=== PATIENT | female | born 1985 | race American Indian/Alaskan Native ===

== ENCOUNTER 2016-12-04 15:27 | Emergency (ER) | payer OTHER ==
[2016-12-04] MEDS ORDERED: Albuterol-Ipratrop 3 mg / 0.5 (3 ml) UD IH STA (15:48)
--- NOTE | 2016-12-04 15:55 | ED PDOC ---
Arrival/HPI - General Time Seen by Provider: 12/04/16 15:31 Historian: Patient - History of Present Illness Narrative History of Present Illness (Text): 12/04/16 15:58 A 31 year old female presents to the emergency department complaining of 2 day duration shortness of breath. Patient denies cough, congestion, sore throat, sputum, fever, chest pain, palpitations or any other complaints at this time. Patient notes never had these symptoms in the past. Patient also notes occasional alcohol use but denies smoking or drug use. Time/Duration: Other (2 days) Symptom Onset: Sudden Symptom Course: Unchanged Activities at Onset: Rest Modifying Factors (Text): none Context: Home Associated Symptoms (Text): none 12/04/16 17:28 2 day history of dyspnea. No chest pain or palpitations. No cough congestion or URI. No nausea or vomiting. No allergies. No headache dizziness or lightheadedness. Patient appears comfortable and in no distress. No history of asthma. Past Medical History - Provider Review Nursing Documentation Reviewed: Yes - Infectious Disease Hx of Infectious Diseases: None - Psychiatric Hx Substance Use: No - Anesthesia Hx Anesthesia: No Family/Social History - Physician Review Nursing Documentation Reviewed: Yes Family/Social History: No Known Family HX Smoking Status: Never Smoked Hx Alcohol Use: No Hx Substance Use: No Allergies/Home Meds Allergies/Adverse Reactions: Allergies No Known Allergies Allergy (Verified 01/11/16 16:03) Review of Systems - Physician Review All systems were reviewed & negative as marked: Yes - Review of Systems Constitutional: absent: Fatigue, Fevers ENT: absent: Sore Throat, Sinus Congestion Respiratory: SOB. absent: Cough, Sputum, Wheezing Cardiovascular: absent: Chest Pain, Palpitations, Edema, Syncope Gastrointestinal: absent: Abdominal Pain, Nausea, Vomiting Genitourinary Female: absent: Dysuria, Frequency, Hematuria Neurological: absent: Headache, Dizziness, Focal Weakness Physical Exam Vital Signs Reviewed: Yes Vital Signs Temp Pulse Resp BP Pulse Ox 12/04/16 16:11 98.0 F 81 18 130/81 98 12/04/16 15:41 97.8 F 70 18 105/70 100 Temperature: Afebrile Blood Pressure: Normal Pulse: Regular Respiratory Rate: Normal Appearance: Positive for: Well-Appearing, Non-Toxic, Comfortable Pain Distress: None Mental Status: Positive for: Alert and Oriented X 3 - Systems Exam Head: Present: Atraumatic, Normocephalic Pupils: Present: PERRL Extroacular Muscles: Present: EOMI Conjunctiva: Present: Normal Ears: Present: NORMAL TM, Normal Canal. No: Erythema Mouth: Present: Moist Mucous Membranes Pharnyx: No: ERYTHEMA, EXUDATE, TONSILS ENLARGED Neck: Present: Normal Range of Motion Respiratory/Chest: Present: Clear to Auscultation, Good Air Exchange. No: Respiratory Distress, Accessory Muscle Use Cardiovascular: Present: Regular Rate and Rhythm, Normal S1, S2. No: Murmurs Abdomen: Present: Normal Bowel Sounds. No: Tenderness, Distention, Peritoneal Signs, Rebound, Guarding Back: Present: Normal Inspection Upper Extremity: Present: Normal Inspection. No: Cyanosis, Edema Lower Extremity: Present: Normal Inspection. No: Edema, CALF TENDERNESS Neurological: Present: GCS=15, CN II-XII Intact, Speech Normal, Motor Func Grossly Intact Skin: Present: Warm, Dry, Normal Color. No: Rashes Psychiatric: Present: Alert, Oriented x 3, Normal Insight, Normal Concentration Medical Decision Making ED Course and Treatment: 12/04/16 15:53 Impression: A 31 year old female with shortness of breath. Differential Diagnosis included but are not limited to: Plan: -- EKG -- chest xray -- labs -- Urinalysis -- Duoneb -- Reassess and disposition Prior Visits: Notes and results from previous visits were reviewed. Patient last reported to the emergency department on 01/11/16 for evaluation of wrist pain. Patient was discharged. Progress Notes: 12/04/16 17:30 EKG shows sinus arrhythmia with unifocal PVCs rate Approximately [address] or T-wave changes 12/04/16 17:38 Patient is feeling better after one high flow nebulizer treatment - Lab Interpretations Lab Results: 12/04/16 16:00 12/04/16 16:00 Lab Results 12/04/16 16:00: Sodium 136, Potassium 3.7, Chloride 103, Carbon Dioxide 25, Anion Gap 12, BUN 14, Creatinine 0.7, Est GFR ( Amer) > 60, Est GFR (Non- Af Amer) > 60, Random Glucose 79, Calcium 9.3, Total Bilirubin 0.5, AST 24, ALT 24, Alkaline Phosphatase 68, Lactate Dehydrogenase 448, Total Creatine Kinase 82 , Troponin I < 0.01, NT-Pro-B Natriuret Pep 39.0, Total Protein 8.0, Albumin 4.3 , Globulin 3.8, Albumin/Globulin Ratio 1.1 12/04/16 16:00: PT 11.5, INR 1.06, APTT 28.0, D-Dimer, Quantitative 0.32 12/04/16 16:00: WBC 6.4, RBC 4.55, Hgb 12.7, Hct 37.0, MCV 81.3, MCH 27.9, MCHC 34.3, RDW 13.6, Plt Count 182, MPV 10.5, Gran % 38.4 L, Lymph % (Auto) 49.6 H, [place] % (Auto) 9.5 H, Eos % (Auto) 2.0, Baso % (Auto) 0.5, Gran # 2.45, Lymph # 3.2, [place] # 0.6, Eos # 0.1, Baso # 0.03 I have reviewed the lab results: Yes - RAD Interpretation Radiology Orders: 12/04/16 15:47 CHEST TWO VIEWS (PA/LAT) [RAD] Stat Chest 2 views shows no infiltrate effusion cardiomegaly or pneumothorax Storeroom Supervisor: ED Physician - EKG Interpretation Interpreted by ED Physician: Yes Type: 12 lead EKG - Medication Orders Current Medication Orders: Discontinued Medications Albuterol/Ipratropium (Duoneb 3 Mg/0.5 Mg (3 Ml) Ud) 3 ml IH ONCE STA Stop: 12/04/16 15:49 Last Admin: 12/04/16 16:14 Dose: 3 ml - Scribe Statement The provider has reviewed the documentation as recorded by the Mik Prakash Provider Scribe Attestation: All medical record entries made by the Mik were at my direction and personally dictated by me. I have reviewed the chart and agree that the record accurately reflects my personal performance of the history, physical exam, medical decision making, and the department course for this patient. I have also personally directed, reviewed, and agree with the discharge instructions and disposition. Disposition/Present on Arrival - Present on Arrival Any Indicators Present on Arrival: No History of DVT/PE: No History of Uncontrolled Diabetes: No Urinary Catheter: No History Surgical Site Infection Following: None - Disposition Have Diagnosis and Disposition been Completed?: Yes Diagnosis: Dyspnea Disposition: HOME/ ROUTINE Disposition Time: 17:40 Patient Plan: Discharge Condition: IMPROVED Discharge Instructions (ExitCare): Dyspnea (ED) Prescriptions: Albuterol HFA [Ventolin HFA 90 mcg/actuation (8 g)] 2 puff IH [id number] #1 puff Referrals: PCP,JUAN [Primary Care Provider] - Follow up with primary Yolanda Booth MD [Staff Provider] - Follow up with primary
[2016-12-04 16:13] VITALS: BP 130/81; PULSE 81; TEMP 98; O2SAT 98; BMI 32.1
[2016-12-04 16:20] LABS: ADD MANUAL DIFF? NO
[2016-12-04 16:36] LABS: ALB/GLOB RATIO 1.1 (1.1-1.8); ALKALINE PHOSPHATASE 68 U/L (38-133); ALT/SGPT 24 U/L (7-56); AST/SGOT 24 U/L (15-39); BILIRUBIN,TOTAL 0.5 mg/dL (0.2-1.3); BLOOD UREA NITROGEN 14 mg/dL (7-21); CALCIUM 9.3 mg/dL (8.4-10.5); CARBON DIOXIDE 25 mmol/L (21-33); CHLORIDE 103 mmol/L (98-107); GFR AFRICAN-AMERICAN > 60; GLUCOSE,RANDOM 79 mg/dL (70-110); POTASSIUM 3.7 mmol/L (3.6-5.0); SODIUM 136 mmol/L (132-148)
[2016-12-04 16:40] LABS: BASO # 0.03 K/mm3 (0.0-2.0); BASO % 0.5 % (0.0-3.0); EOS # 0.1 (0.0-0.7); GRAN # 2.45 (1.4-6.5); GRAN % 38.4 % (50.0-68.0); LYMPH # 3.2 (1.2-3.4); LYMPH % 49.6 % (22.0-35.0); MEAN CELL VOLUME 81.3 fL (80.0-105.0); MEAN CORPUSCULAR HEMOGLOBIN 27.9 pg (25.0-35.0); MEAN CORPUSCULAR HGB CONC 34.3 g/dl (31.0-37.0); MEAN PLATELET VOLUME 10.5 fl (7.0-11.0); MONO # 0.6 (0.1-0.6); MONO % 9.5 % (1.0-6.0); PLATELET COUNT 182 10^3/uL (120.0-450.0); RED CELL DISTRIBUTION WIDTH 13.6 % (11.5-14.5); WHITE BLOOD COUNT 6.4 10^3/ul (4.5-11.0)
[2016-12-04 16:49] LABS: INR 1.06 (0.93-1.08)
[2016-12-04 16:50] LABS: D DIMER 0.32 mg/L FEU (0-0.50)
[2016-12-04 16:55] LABS: TROPONIN I < 0.01 ng/mL
[2016-12-04 18:10] VITALS: RESP 16
--- NOTE | 2016-12-05 01:51 | CARD ---
APPROVED REPORT EKG Measurement Heart [id number] <Conclusion> Sinus rhythm with frequent premature ventricular complexes Otherwise normal ECG
--- NOTE | 2016-12-05 08:58 | RAD ---
HISTORY: sob COMPARISON: No prior. TECHNIQUE: Chest PA and lateral FINDINGS: LUNGS: No active pulmonary disease. PLEURA: No significant pleural effusion identified. No pneumothorax apparent. CARDIOVASCULAR: Normal. OSSEOUS STRUCTURES: No significant abnormalities. VISUALIZED UPPER ABDOMEN: Normal. OTHER FINDINGS: None. IMPRESSION: No active disease.
== END 2016-12-04 18:42 | disposition home or self-care (01) ==
LOC: ED 15:27
DX: R06.00 Dyspnea, unspecified (principal)

== ENCOUNTER 2017-06-06 18:10 | Emergency (ER) | payer OTHER ==
[2017-06-06 18:22] VITALS: TEMP 98.2; BMI 32.8
--- NOTE | 2017-06-06 18:39 | ED PDOC ---
Arrival/HPI - General Chief Complaint: Chest Pain Time Seen by Provider: 06/06/17 18:19 Historian: Patient - History of Present Illness Narrative History of Present Illness (Text): 06/06/17 18:38 This 32 yo female who denies pmh, presents to this ED c/o RLL pleuritic chest pain x 3 weeks. Patient stated patient was seen at [facility] x 2 weeks ago for same complains. Patient stated she had CT scan of chest, blood test at [facility], which were negative. Patient denies fever, cough, sob, abdominal pain, urinary symptoms, skin rash, dizziness, ROCHA, leg swelling, calf pain, recent trauma, recent surgery, or abnormal gait. PERC negative for PE Time/Duration: Other (e hpi) Quality: Stabbing Context: Home Past Medical History - Provider Review Nursing Documentation Reviewed: Yes - Infectious Disease Hx of Infectious Diseases: None - Psychiatric Hx Substance Use: No - Surgical History Other/Comment: cyst removal of right ovary - Anesthesia Hx Anesthesia: Yes Hx Anesthesia Reactions: No Hx Malignant Hyperthermia: No Family/Social History - Physician Review Nursing Documentation Reviewed: Yes Family/Social History: Other (noncontributory) Smoking Status: Never Smoked Hx Alcohol Use: No Hx Substance Use: No Allergies/Home Meds Allergies/Adverse Reactions: Allergies No Known Allergies Allergy (Verified 01/11/16 16:03) Physical Exam Vital Signs Temp Pulse Resp BP Pulse Ox 06/06/17 18:21 98.2 F 67 18 126/71 98 Medical Decision Making ED Course and Treatment: 06/06/17 21:07 Re-evaluation. Patient feels better. Discussed results and plan with patient who expresses understanding. All questions answered and there is agreement with the plan to discharge home with instructions. Patient stable for discharge. Return if symptoms persist or worsen. Re-evaluation Time: 21:06 Reassessment Condition: Re-examined, Improved - Lab Interpretations Lab Results: 06/06/17 19:56 06/06/17 19:56 Lab Results 06/06/17 19:56: Sodium 140, Potassium 4.4, Chloride 105, Carbon Dioxide 27, Anion Gap 12, BUN 15, Creatinine 0.9, Est GFR ( Amer) > 60, Est GFR (Non- Af Amer) > 60, Random Glucose 92, Calcium 9.6, Total Bilirubin 0.6, AST 27, ALT 25, Alkaline Phosphatase 62, Total Protein 7.9, Albumin 4.2, Globulin 3.7, Albumin/Globulin Ratio 1.1, Lipase 74 06/06/17 19:56: WBC 5.5, RBC 4.61, Hgb 13.0, Hct 39.2, MCV 85.0, MCH 28.2, MCHC 33.2, RDW 13.3, Plt Count 194, MPV 10.0, Gran % 32.8 L, Lymph % (Auto) 55.2 H, [place] % (Auto) 9.1 H, Eos % (Auto) 2.7, Baso % (Auto) 0.2, Gran # 1.81, Lymph # 3.0, [place] # 0.5, Eos # 0.2, Baso # 0.01 06/06/17 19:10: Urine Color Yellow, Urine Appearance Sl cloudy, Urine pH 7.0, Ur Specific [place] 1.020, Urine Protein Trace H, Urine Glucose (UA) Negative, Urine Ketones Negative, Urine Blood Moderate H, Urine Nitrate Negative, Urine Bilirubin Negative, Urine Urobilinogen 0.2, Ur Leukocyte Esterase Trace H, Urine RBC 5 - 10, Urine WBC 5 - 10, Ur Epithelial Cells 10 - 12, Urine Bacteria Mod, Urine HCG, Qual Negative I have reviewed the lab results: Yes Interpretation: No clinic. lab abnormalty - RAD Interpretation Narrative RAD Interpretations (Text): 06/06/17 20:56 Chest x-rays: [facility] of Radiology [address] [place] [address] Tel. no. Patient Name: STAS CHIN Pt. Address: [address] [place] [address]. Rec #: [id number] [place] [address]: Tito BARRIOS,Keegan De La Torre Pt Order Location: ED : 1985 Female Age: 32 Order #: [id number] Reason for exam: RUQ pain Ultrasound ABDOMEN COMPLETE Exam Date: 06/06/17 This imaging exam was performed at [facility] EXAM: US Abdomen Complete EXAM DATE/TIME: 06/06/2017 6:39 PM CLINICAL HISTORY: 32 years old, female; Pain; Abdominal pain; Flank; Right upper quadrant (ruq); Additional info: Ruq pain TECHNIQUE: Real-time ultrasound of the abdomen (complete) with image documentation. COMPARISON: There are no prior studies for comparison. FINDINGS: Liver: Liver is unremarkable. There is hepatopedal flow in the main portal vein. Gallbladder: Gallbladder is only partially distended with no stones, sludge or wall thickening. Common bile duct: Common bile duct measures 8 mm in diameter. Pancreas: Pancreas is partially obscured by bowel gas. Visualized portion is unremarkable. Kidneys: There are no renal abnormalities. Right kidney measures approximately 11 cm in length. Bowel gas limits evaluation left renal length.There is no pelvocaliectasis. Spleen: Spleen is unremarkable. Aorta: Visualized portions of the aorta and inferior vena cava are unremarkable. Inferior vena cava: See above. IMPRESSION: Partially distended gallbladder, no shadowing stones or sludge; prominent common duct; slightly limited evaluation of the abdomen due to bowel gas and body habitus; no hydronephrosis Patient was not tender over the gallbladder Dictated By: Gifty Aragon MD, MD Dictated Date/Time: 06/06/172014 Signed By: Gifty Aragon MD Date Signed: 2014 Transcribed By: CHRISTINA Transcribe Date/Time : 06/06/172014 KIESHA/SAMUEL Radiology Orders: 06/06/17 18:39 ABDOMEN COMPLETE [US] Stat 06/06/17 18:40 CHEST TWO VIEWS (PA/LAT) [RAD] Stat - EKG Interpretation Interpreted by ED Physician: Yes (NSR @ 69 bpm. Normal interval) Type: 12 lead EKG Comparison: No previous EKG avail. - Medication Orders Current Medication Orders: Discontinued Medications Famotidine (Pepcid) 20 mg IVP STAT STA Stop: 06/06/17 18:40 Disposition/Present on Arrival - Present on Arrival Any Indicators Present on Arrival: No History of DVT/PE: No History of Uncontrolled Diabetes: No Urinary Catheter: No History of Decub. Ulcer: No History Surgical Site Infection Following: None - Disposition Have Diagnosis and Disposition been Completed?: Yes Diagnosis: Chest wall pain Disposition: HOME/ ROUTINE Disposition Time: 21:11 Patient Plan: Discharge Condition: GOOD Discharge Instructions (ExitCare): Chest Wall Pain (ED) Additional Instructions: Call private doctor for follow up visit in 1-2 days. Take medication as instructed with food. Return to emergency if symptoms worsen. Prescriptions: Ibuprofen [Motrin] 600 mg PO Q8 PRN #20 tab PRN Reason: Pain, Severe (8-10) Omeprazole 40 mg PO DAILY #20 capsule. Referrals: Yolanda Booth MD [Family Provider] - Follow up with primary Forms: [facility] (Pashto), WORK NOTE
[2017-06-06 19:26] LABS: URINE BILIRUBIN NEGATIVE (NEGATIVE); URINE BLOOD MODERATE (NEGATIVE); URINE GLUCOSE (UA) NEGATIVE (NEGATIVE); URINE KETONE NEGATIVE (NEGATIVE); URINE LEUKOCYTE ESTERASE TRACE Leu/uL (NEGATIVE); URINE PROTEIN TRACE mg/dL (<30 mg/dL); URINE UROBILINOGEN 0.2 E.U./dL (<1 E.U./dL)
[2017-06-06 19:29] LABS: URINE APPEARANCE SL CLOUDY (CLEAR); URINE COLOR YELLOW (YELLOW)
[2017-06-06 19:36] LABS: URINE BACTERIA MOD (NEG)
[2017-06-06 20:10] LABS: BASO # 0.01 K/mm3 (0.0-2.0); BASO % 0.2 % (0.0-3.0); EOS # 0.2 (0.0-0.7); EOS % 2.7 % (1.5-5.0); GRAN # 1.81 (1.4-6.5); GRAN % 32.8 % (50.0-68.0); HEMATOCRIT 39.2 % (36.0-48.0); LYMPH % 55.2 % (22.0-35.0); MEAN CORPUSCULAR HEMOGLOBIN 28.2 pg (25.0-35.0); MEAN CORPUSCULAR HGB CONC 33.2 g/dl (31.0-37.0); MONO # 0.5 (0.1-0.6); MONO % 9.1 % (1.0-6.0); RED CELL DISTRIBUTION WIDTH 13.3 % (11.5-14.5); WHITE BLOOD COUNT 5.5 10^3/ul (4.5-11.0)
[2017-06-06 20:22] LABS: ALB/GLOB RATIO 1.1 (1.1-1.8); ALKALINE PHOSPHATASE 62 U/L (38-126); ALT/SGPT 25 U/L (7-56); AST/SGOT 27 U/L (14-36); BILIRUBIN,TOTAL 0.6 mg/dL (0.2-1.3); BLOOD UREA NITROGEN 15 mg/dL (7-21); CALCIUM 9.6 mg/dL (8.4-10.5); CARBON DIOXIDE 27 mmol/L (21-33); CHLORIDE 105 mmol/L (98-107); GFR AFRICAN-AMERICAN > 60; GLUCOSE,RANDOM 92 mg/dL (70-110); LIPASE 74 U/L (23-300); POTASSIUM 4.4 mmol/L (3.6-5.0); SODIUM 140 mmol/L (132-148); TOTAL PROTEIN 7.9 g/dL (5.8-8.3)
--- NOTE | 2017-06-06 20:24 | US ---
EXAM: US Abdomen Complete EXAM DATE/TIME: 06/06/2017 6:39 PM CLINICAL HISTORY: 32 years old, female; Pain; Abdominal pain; Flank; Right upper quadrant (ruq); Additional info: Ruq pain TECHNIQUE: Real-time ultrasound of the abdomen (complete) with image documentation. COMPARISON: There are no prior studies for comparison. FINDINGS: Liver: Liver is unremarkable. There is hepatopedal flow in the main portal vein. Gallbladder: Gallbladder is only partially distended with no stones, sludge or wall thickening. Common bile duct: Common bile duct measures 8 mm in diameter. Pancreas: Pancreas is partially obscured by bowel gas. Visualized portion is unremarkable. Kidneys: There are no renal abnormalities. Right kidney measures approximately 11 cm in length. Bowel gas limits evaluation left renal length.There is no pelvocaliectasis. Spleen: Spleen is unremarkable. Aorta: Visualized portions of the aorta and inferior vena cava are unremarkable. Inferior vena cava: See above. IMPRESSION: Partially distended gallbladder, no shadowing stones or sludge; prominent common duct; slightly limited evaluation of the abdomen due to bowel gas and body habitus; no hydronephrosis Patient was not tender over the gallbladder
[2017-06-06 21:53] VITALS: BP 124/83; PULSE 72; RESP 16; O2SAT 100
--- NOTE | 2017-06-07 08:34 | RAD ---
HISTORY: COMPARISON: 12/04/2016. TECHNIQUE: Chest PA and lateral FINDINGS: LINES AND TUBES: None. LUNG AND PLEURA: The lungs are well inflated and clear. HEART AND MEDIASTINUM: The heart is not enlarged. The hilar and mediastinal contours are within normal limits. SKELETAL STRUCTURES: The bony structures are within normal limits for the patient's age. VISUALIZED UPPER ABDOMEN: Normal. OTHER FINDINGS: None. IMPRESSION: No active pulmonary disease.
--- NOTE | 2017-06-07 22:19 | CARD ---
APPROVED REPORT EKG Measurement Heart [id number] <Conclusion> Normal sinus rhythm Normal ECG
== END 2017-06-06 21:53 | disposition home or self-care (01) ==
LOC: ED 18:10
DX: R07.89 Other chest pain (principal)
CPT/HCPCS: 71020; 76700; 80053; 81001; 83690; 84703; 85025; 87086; 93005; 96374; 96375; 99283; J1885

== ENCOUNTER 2017-11-14 18:26 | Emergency (ER) | payer OTHER ==
[2017-11-14 18:26] VITALS: BMI 32.8
[2017-11-14 19:25] LABS: PH,URINE 6.5 (4.7-8.0); URINE BILIRUBIN NEGATIVE (NEGATIVE); URINE BLOOD SMALL (NEGATIVE); URINE GLUCOSE (UA) NEGATIVE (NEGATIVE); URINE LEUKOCYTE ESTERASE NEGATIVE Leu/uL (NEGATIVE); URINE PROTEIN NEGATIVE mg/dL (<30 mg/dL); URINE UROBILINOGEN 0.2 E.U./dL (<1 E.U./dL)
[2017-11-14 19:26] LABS: URINE APPEARANCE CLEAR (CLEAR); URINE COLOR YELLOW (YELLOW)
[2017-11-14] MEDS ORDERED: Sodium Chloride 0.9% 1,000 ML IV STA (19:31)
--- NOTE | 2017-11-14 19:34 | ED PDOC ---
Arrival/HPI - General Historian: Patient <Sobia Bruno A - Last Filed: 11/14/17 20:35> - History of Present Illness Time/Duration: 24 hours Symptom Onset: Gradual Symptom Course: Unchanged Quality: Aching Severity Level: 1 Activities at Onset: Rest Context: Sitting <Gerry Pereyra - Last Filed: 11/14/17 22:13> - General Chief Complaint: Female Genitourinary Time Seen by Provider: 11/14/17 18:48 - History of Present Illness Narrative History of Present Illness (Text): 11/14/17 19:32 32yo female with no PMHx who present with complaint of dysuria, vaginal itching and intermittent brownish thick discharge x 3days. She denies nausea, vomiting, diarrhea, constipation, back pain, fever, chills. (Sobia Bruno A) Past Medical History - Provider Review Nursing Documentation Reviewed: Yes - Infectious Disease Hx of Infectious Diseases: None - Cardiac Hx Cardiac Disorders: No - Pulmonary Hx Respiratory Disorders: Yes Hx Asthma: Yes - Neurological Hx Neurological Disorder: No - HEENT Hx HEENT Disorder: No - Renal Hx Renal Disorder: No - Endocrine/Metabolic Hx Endocrine Disorders: No - Hematological/Oncological Hx Blood Disorders: No - Integumentary Hx Dermatological Disorder: No - Musculoskeletal/Rheumatological Hx Musculoskeletal Disorders: No - Gastrointestinal Hx Gastrointestinal Disorders: No - Genitourinary/Gynecological Hx Genitourinary Disorders: No - Psychiatric Hx Psychophysiologic Disorder: No Hx Substance Use: No - Surgical History Other/Comment: cyst removal of right ovary - Anesthesia Hx Anesthesia: Yes Hx Anesthesia Reactions: No Hx Malignant Hyperthermia: No <Sobia Bruno A - Last Filed: 11/14/17 20:35> Family/Social History - Physician Review Nursing Documentation Reviewed: Yes Family/Social History: Unknown Family HX Smoking Status: Never Smoked Hx Alcohol Use: Yes Frequency of alcohol use: Socially Hx Substance Use: No <Sobia Bruno A - Last Filed: 11/14/17 20:35> Allergies/Home Meds <Sobia Bruno A - Last Filed: 11/14/17 20:35> <Gerry Pereyra - Last Filed: 11/14/17 22:13> Allergies/Adverse Reactions: Allergies No Known Allergies Allergy (Verified 01/11/16 16:03) Review of Systems - Physician Review All systems were reviewed & negative as marked: Yes - Review of Systems Constitutional: Normal Eyes: Normal ENT: Normal Respiratory: Normal Cardiovascular: Normal Gastrointestinal: Abdominal Pain. absent: Constipation, Diarrhea, Nausea, Vomiting, Hematochezia, Hematemesis Genitourinary Female: Dysuria, Vaginal Discharge. absent: Hematuria Musculoskeletal: Normal Skin: Normal Neurological: Normal Endocrine: Normal Hemo/Lymphatic: Normal Psychiatric: Normal <Diru,Happiness A - Last Filed: 11/14/17 20:35> Physical Exam Vital Signs Reviewed: Yes Temperature: Afebrile Blood Pressure: Normal Pulse: Regular Respiratory Rate: Normal Appearance: Positive for: Well-Appearing, Non-Toxic, Comfortable Pain Distress: None Mental Status: Positive for: Alert and Oriented X 3 - Systems Exam Head: Present: Atraumatic, Normocephalic Pupils: Present: PERRL Extroacular Muscles: Present: EOMI Conjunctiva: Present: Normal Mouth: Present: Moist Mucous Membranes Neck: Present: Normal Range of Motion Respiratory/Chest: Present: Clear to Auscultation, Good Air Exchange. No: Respiratory Distress, Accessory Muscle Use Cardiovascular: Present: Regular Rate and Rhythm, Normal S1, S2. No: Murmurs Abdomen: Present: Other (Soft). No: Tenderness, Distention, Peritoneal Signs, Rebound, Guarding, McBurney's Point Tender, Rovsing's Sign Present Genitourinary/Pelvic Exam: Present: Cervical os Closed. No: Vaginal Discharge, Vaginal Bleeding, Cervical Motion Tendernes Back: Present: Normal Inspection. No: CVA Tenderness Upper Extremity: Present: Normal Inspection. No: Cyanosis, Edema Lower Extremity: Present: Normal Inspection. No: Edema Neurological: Present: GCS=15, CN II-XII Intact, Speech Normal Skin: Present: Warm, Dry, Normal Color. No: Rashes Psychiatric: Present: Alert, Oriented x 3, Normal Insight, Normal Concentration <Diru,Happiness A - Last Filed: 11/14/17 20:35> Vital Signs Temp Pulse Resp BP Pulse Ox 11/14/17 18:47 98.6 F 71 18 119/68 98 Medical Decision Making <Diru,Happiness A - Last Filed: 11/14/17 20:35> Reassessment Condition: Re-examined, Improved - Lab Interpretations I have reviewed the lab results: Yes <Gerry Pereyra Last Filed: 11/14/17 22:13> ED Course and Treatment: 11/14/17 20:26 Pt' Upreg was positive in ED. On further questioning she notes that her LMP was November 03. States she had miscarriage on October 01. She is . States she saw her INSTRUCTIONAL ASSISTANT earlier this month and was told that her test was negative after the miscarriage. She denies vaginal bleeding. 11/14/17 20:36 Transvaginal US ordered and pending Labs, beta ordered 1L NS ordered Case was endorsed to Dr. Cabral to f/u US and lab and dispo pt accordingly. ( Kiana,Sobia A) 11/14/17 20:55 you were treated in the ED today for urinary/pelvic discomfort with last menstruation 11/03/17 and had a miscarriage 10/01/17 and otherwise without any nausea/vomiting/headache/dizziness/difficulty breathing/chest pain/abdomen pain/ numbness/tingling/loss of limb function/pain with urination/vaginal bleeding. You were otherwise breathing easily, smiling and talking easily, good strength/ sensation, walking easily, clear lungs, no abdomen tenderness, pelvic exam no acute findings, no fever temp 98.6, stable heart rate 71, stable breathing rate 18, excellent oxygen level 98% room air, stable blood pressure 119/68 which we recommend repeat in 2-3 days primary care office to determine further treatment , you have blood tests no infection count 5, stable blood level hemoglobin 13/ platelets 173, stable chemistry, urine test no acute sign of infection, urine test positive, beta 194 low, radiology ultrasound no intrauterine , observation done in the ED with improvement, you wanted to wait for results of sexual disease testing to determine further treatment, had long discussion for transfer for obstetrics evaluation but you refused and cautioned for complications/ but you stated you feel fine and will followup tomorrow obstetrics clinic, counselled to have bed rest and thus discharged home. 1. Recommend tylenol as directed for pain. 2. Recommend follow- up primary care 1 days to review symptoms, to follow-up sexual disease testing and determine further treatment, referral to obstetrics clinic tomorrow to review symptoms, ultrasound without noted and thickened endometrium without able to exclude products of [place]/ovary cyst to ensure no complications/cancer development. 4. If any worsening pain, fever, chills, nausea, vomiting, difficulty breathing, numbness, loss of limb function, pain with urination or any medical condition then return to the ED. (Gerry Pereyra) - Lab Interpretations Lab Results: 11/14/17 20:20 11/14/17 20:20 Lab Results 11/14/17 20:20: Beta HCG, Quant 194.52 H 11/14/17 20:20: Sodium 140, Potassium 3.8, Chloride 105, Carbon Dioxide 23, Anion Gap 16, BUN 16, Creatinine 0.7, Est GFR ( Amer) > 60, Est GFR (Non- Af Amer) > 60, Random Glucose 86, Calcium 9.6, Total Bilirubin 0.3, AST 29, ALT 26, Alkaline Phosphatase 72, Total Protein 8.5 H, Albumin 4.7, Globulin 3.8, Albumin/Globulin Ratio 1.2 11/14/17 20:20: PT 12.1, INR 1.06, APTT 28.5 11/14/17 20:20: WBC 5.7, RBC 4.80, Hgb 13.4, Hct 40.1, MCV 83.5, MCH 27.9, MCHC 33.4, RDW 13.4, Plt Count 173, MPV 10.8, Gran % 40.5 L, Lymph % (Auto) 47.3 H, Nelson % (Auto) 10.4 H, Eos % (Auto) 1.6, Baso % (Auto) 0.2, Gran # 2.30, Lymph # (Auto) 2.7, Nelson # (Auto) 0.6, Eos # (Auto) 0.1, Baso # (Auto) 0.01 11/14/17 19:17: Urine Color Yellow, Urine Appearance Clear, Urine pH 6.5, Ur Specific [place] 1.020, Urine Protein Negative, Urine Glucose (UA) Negative, Urine Ketones Trace H, Urine Blood Small H, Urine Nitrate Negative, Urine Bilirubin Negative, Urine Urobilinogen 0.2, Ur Leukocyte Esterase Negative, Urine RBC 2 - 5, Urine WBC 1 - 3, Ur Epithelial Cells 4 - 5, Urine Bacteria Few - RAD Interpretation Radiology Orders: 11/14/17 19:29 TRANSVAGINAL [US] Stat - Medication Orders Current Medication Orders: Discontinued Medications Sodium Chloride (Sodium Chloride 0.9%) 1,000 mls @ 999 mls/hr IV .Q1H1M STA Stop: 11/14/17 20:31 Last Admin: 11/14/17 20:15 Dose: 999 mls/hr eMAR Start Stop Document 11/14/17 20:15 MS (Rec: 11/14/17 20:35 MS [id number]) Intravenous Solution Start Date 11/14/17 Start Time 20:35 End Date 11/14/17 End time 21:35 Total Infusion Time 60 Disposition/Present on Arrival - Present on Arrival Any Indicators Present on Arrival: No History of DVT/PE: No History of Uncontrolled Diabetes: No Urinary Catheter: No History of Decub. Ulcer: No History Surgical Site Infection Following: None - Disposition Have Diagnosis and Disposition been Completed?: Yes <Sobia Bruno - Last Filed: 11/14/17 20:35> - Disposition Disposition Time: 22:13 Patient Plan: Discharge <Gerry Pereyra - Last Filed: 11/14/17 22:13> - Disposition Diagnosis: Pelvic pain Disposition: HOME/ ROUTINE Condition: IMPROVED Discharge Instructions (ExitCare): Acute Pelvic Pain (DC) Additional Instructions: you were treated in the ED today for urinary/pelvic discomfort with last menstruation 11/03/17 and had a miscarriage 10/01/17 and otherwise without any nausea/vomiting/headache/dizziness/difficulty breathing/chest pain/abdomen pain/ numbness/tingling/loss of limb function/pain with urination/vaginal bleeding. You were otherwise breathing easily, smiling and talking easily, good strength/ sensation, walking easily, clear lungs, no abdomen tenderness, pelvic exam no acute findings, no fever temp 98.6, stable heart rate 71, stable breathing rate 18, excellent oxygen level 98% room air, stable blood pressure 119/68 which we recommend repeat in 2-3 days primary care office to determine further treatment , you have blood tests no infection count 5, stable blood level hemoglobin 13/ platelets 173, stable chemistry, urine test no acute sign of infection, urine test positive, beta 194 low, radiology ultrasound no intrauterine , observation done in the ED with improvement, you wanted to wait for results of sexual disease testing to determine further treatment, had long discussion for transfer for obstetrics evaluation but you refused and cautioned for complications/ but you stated you feel fine and will followup tomorrow obstetrics clinic, counselled to have bed rest and thus discharged home. 1. Recommend tylenol as directed for pain. 2. Recommend follow- up primary care 1 days to review symptoms, to follow-up sexual disease testing and determine further treatment, referral to obstetrics clinic tomorrow to review symptoms, ultrasound without noted and thickened endometrium without able to exclude products of [place]/ovary cyst to ensure no complications/cancer development. 4. If any worsening pain, fever, chills, nausea, vomiting, difficulty breathing, numbness, loss of limb function, pain with urination or any medical condition then return to the ED. Forms: [employer] ([place])
[2017-11-14 19:36] LABS: URINE BACTERIA FEW (NEG)
[2017-11-14 20:35] LABS: BASO # 0.01 K/mm3 (0.0-2.0); BASO % 0.2 % (0.0-3.0); EOS # 0.1 (0.0-0.7); EOS % 1.6 % (1.5-5.0); GRAN # 2.3 (1.4-6.5); GRAN % 40.5 % (50.0-68.0); HEMOGLOBIN 13.4 g/dL (12.0-16.0); LYMPH # 2.7 (1.2-3.4); LYMPH % 47.3 % (22.0-35.0); MEAN CELL VOLUME 83.5 fl (80.0-105.0); MEAN CORPUSCULAR HEMOGLOBIN 27.9 pg (25.0-35.0); MEAN CORPUSCULAR HGB CONC 33.4 g/dl (31.0-37.0); MEAN PLATELET VOLUME 10.8 fl (7.0-11.0); MONO # 0.6 (0.1-0.6); MONO % 10.4 % (1.0-6.0); RBC 4.8 10^6/uL (3.5-6.1); RED CELL DISTRIBUTION WIDTH 13.4 % (11.5-14.5); WHITE BLOOD COUNT 5.7 10^3/ul (4.5-11.0)
[2017-11-14 20:47] LABS: INR 1.06 (0.93-1.08); PARTIAL THROMBOPLASTIN TIME 28.5 Seconds (25.1-36.5); PROTHROMBIN TIME 12.1 SECONDS (9.4-12.5)
[2017-11-14 20:50] LABS: ALB/GLOB RATIO 1.2 (1.1-1.8); ALBUMIN 4.7 g/dL (3.0-4.8); ALT/SGPT 26 U/L (7-56); AST/SGOT 29 U/L (14-36); BLOOD UREA NITROGEN 16 mg/dL (7-21); CALCIUM 9.6 mg/dL (8.4-10.5); GFR AFRICAN-AMERICAN > 60; GFR NON-AFRICAN AMERICAN > 60
--- NOTE | 2017-11-14 21:03 | US ---
EXAM: US First Trimester, Transabdominal US , Transvaginal CLINICAL HISTORY: 32 years old, female; Pain; Pelvic pain; Additional info: /abdominal pain TECHNIQUE: Real-time transabdominal and transvaginal obstetrical ultrasound of the maternal pelvis and a first trimester with image documentation. Transvaginal imaging was used for better evaluation of the fetus and adnexa. COMPARISON: No relevant prior studies available. FINDINGS: Gestation: No intrauterine gestational sac. Uterus/cervix: Endometrium: Up to 3.3 cm in thickness, heterogeneous with marked vascularity. Closed cervix. Ovaries: RIGHT ovary: 1.4 x 1.2 x 1.1 cm anechoic lesion. LEFT ovary: Not visualized. No adnexal masses. Free fluid: No significant free fluid. IMPRESSION: 1. No intrauterine gestation. DDX: Early IUP, missed , ectopic . 2. Thickened, heterogeneous, hypervascular endometrium. RPOC not excluded. 3. RIGHT ovarian cyst.
[2017-11-14 23:03] VITALS: BP 133/76; PULSE 67; RESP 16; TEMP 97.8; O2SAT 99
== END 2017-11-14 22:22 | disposition left against medical advice (07) ==
LOC: ED 18:26
DX: R10.2 Pelvic and perineal pain (principal)
CPT/HCPCS: 76830; 80053; 81001; 84702; 85025; 85610; 85730; 87491; 87591; 96360; 99283; J7040